=== PATIENT | male | born 1980 | race Caucasian/White ===

== ENCOUNTER 2017-01-19 14:33 | Day surgery (SDC) | payer OTHER ==
[~2017-01-19] VITALS: Ht 149.9 cm; Wt 26.8 kg
[~2017-01-19 14:33] MED LIST: FOL8 PO; IRON18TA PO; PANTOPRAZOLE PO
[2017-01-19] MEDS ORDERED: RANITIDINE (15:03)
[2017-01-19] MEDS ORDERED: FERROUS SULFATE (15:03)
[2017-01-19] MEDS ORDERED: LINZESS (15:03)
[2017-01-19 15:11] VITALS: Ht 149.9 cm; Wt 26.8 kg
--- NOTE | 2017-01-20 05:44 | GILP ---
DATE OF PROCEDURE: 01/19/2017 PREOP DIAGNOSIS: Malfunctioning G-tube. Because apparently while trying to feed the patient through the G-tube and the G- tube is clogged. POSTOP DIAGNOSIS: Malfunctioning G-tube. DESCRIPTION OF PROCEDURE: The patient was put in supine position. No sedation is needed, the existing G-tube was removed by applying gentle vertical traction. By using the same gastrostomy opening number 20 replacement G-tube was inserted into the stomach and 10 cc of fluid was instilled into the balloon for retention of the G-tube and by aspirating the gastric contents it was confirmed the G-tube was in the right place. The procedure was terminated and bumper was brought closer to the skin. The end of the G-tube was closed with the stopper and procedure was terminated. PLAN: Resume the G-tube feeding. Dictated By: Mario Henson MD /russ/syd /Document#: [id number]
== END 2017-01-19 19:36 | disposition home or self-care (01) ==
LOC: GIL 14:33
PROVIDERS: ATTEND Internal Medicine Gastroenterology
DX: K94.23 Gastrostomy malfunction (principal); Y83.8 Other surgical procedures as the cause of abnormal reaction of the patient, or of later complication, without mention of misadventure at the time of the procedure
CPT/HCPCS: 43760; Z7610